=== PATIENT | male | born 1985 | race Caucasian/White ===

== ENCOUNTER → 2020-07-02 09:59 | Outpatient (CLI) | payer BC, SELFPAY ==
--- NOTE | ~2020-07-02 | XR_ITS ---
EXAMINATION: XR lumbar spine 2-3V DATE: 07/02/2020 10:26 INDICATION: Lumbar fusion. TECHNIQUE: 3 views of lumbar spine were obtained. COMPARISON: None. FINDINGS: There is 6 degrees dextrocurvature of thoracolumbar spine. Vertebral body heights are pearl l. There are changes of anterior and posterior fusion procedures at L5-S1 with interbody device and p edicle screws. Intervertebral disc heights are normal. The facet joints are unremarkable. IMPRESSION: 1. Anterior and posterior fusion procedures at L5-S1. Reviewed, dictated and finalized at location A. 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
== END ==
PROVIDERS: Visit Provider Neurological Surgery
DX: Z98.1 Arthrodesis status (principal)
CPT/HCPCS: 72100

== ENCOUNTER → 2020-09-10 14:46 | Outpatient (CLI) | payer BC, SELFPAY ==
--- NOTE | ~2020-09-10 | XR_ITS ---
XR lumbar spine 2-3V DATE: 09/10/2020 15:32 INDICATION: Lumbar spinal fusion TECHNIQUE: Supine AP, lateral, coned lateral lumbosacral views COMPARISON: 07/02/2020 standing AP, lateral and coned lateral lumbosacral views FINDINGS: Status post interbody and posterior spinal fusion at L5-S1. The hardware appears intact, wi thout evidence of fracture or displacement. No fracture or bone destruction. The included lower thoracic and lumbar pedicles are intact. Lumbar i nterspaces are well preserved. The sacroiliac joints appear normal. IMPRESSION: Status post interbody and posterior spinal fusion at L5-S1; no interval abnormality or ch gilda Reviewed, dictated and finalized at location A. [employer]ICAL AND ELECTRONIC ASSEMBLER IMPRESSION: Status post interbody and posterior spinal fusion at L5-S1; no inte rval abnormality or change
== END ==
PROVIDERS: Visit Provider Neurological Surgery
DX: Z98.1 Arthrodesis status (principal)
CPT/HCPCS: 72100

== ENCOUNTER → 2021-02-14 17:44 | Outpatient (CLI) | payer BC, SELFPAY ==
--- NOTE | ~2021-02-14 | XR_ITS ---
EXAMINATION: XR lumbar spine 2-3V EXAM DATE: 02/14/2021 18:29 INDICATION: Lumbar fusion. TECHNIQUE: Lumber spine frontal, lateral, lateral L5-S1 projections for interpretation. There is no prior study for comparison. FINDINGS: L5-S1 posterior fusion and interbody device and possible laminectomies at L5. The vertebra l bodies are aligned in the AP dimension. Vertebral body and disc heights are well-maintained. Mild l umbar facet arthropathy. Sacrum, sacroiliac joints, sacral arcuate lines are intact. Paraspinal soft tissue is unremarkable. IMPRESSION: 1. Intact L5-S1 fusion. Reviewed, dictated and finalized at location A. IMPRESSION: 1. Intact L5-S1 fusion.
== END ==
PROVIDERS: Visit Provider Neurological Surgery
DX: Z98.1 Arthrodesis status (principal)
CPT/HCPCS: 72100